=== PATIENT | female | born 1965 | race Two or more races ===

== ENCOUNTER 2019-07-01 21:35 | Emergency (ER) | payer OTHER ==
[~2019-07-01] VITALS: Ht 337.8 cm; Wt 70.8 kg
[2019-07-01 21:35] VITALS: BP 123/78
[2019-07-01] MEDS ORDERED: ALBUTEROL FS 2.5 MG/3 ML VIAL.NEB NEB ONE (22:30)
[2019-07-01] MEDS ORDERED: IPRATROPIUM NEB FS 0.5 MG/2.5 ML AMPUL.NEB NEB ONE (22:30)
[2019-07-01] MEDS ORDERED: IPRATROPIUM NEB FS 0.5 MG/2.5 ML AMPUL.NEB ONE (22:33)
[2019-07-01] MEDS ORDERED: ALBUTEROL FS 2.5 MG/3 ML VIAL.NEB ONE (22:33)
== END 2019-07-01 23:34 | disposition home or self-care (01) ==
LOC: ER 21:38
DX: J40 Bronchitis, not specified as acute or chronic (principal); F17.200 Nicotine dependence, unspecified, uncomplicated
CPT/HCPCS: 71045-TC